=== PATIENT | male | born 1965 | race Caucasian/White ===

== ENCOUNTER 2019-04-10 11:44 | Day surgery (SDC) | payer OTHER ==
[2019-04-10] MEDS: LACTATED RINGER'S 1,000 ML IV (13:24)
[2019-04-10 13:29] LABS: ADD MAN DIFF? NO
[2019-04-10 13:33] LABS: BASOPHILS % 0.5 % (0.0-2.0); EOSINOPHILS # 0.1 10^3/ul (0.0-0.5); EOSINOPHILS % 0.7 % (0.0-7.0); HEMATOCRIT 44.8 % (42.0-52.0); HEMOGLOBIN 14.8 g/dl (14.0-18.0); LYMPHOCYTES % 25.2 % (15.0-51.0); MEAN CORPUSCULAR HEMOGLOBIN 29.7 pg (29.0-33.0); MEAN CORPUSCULAR VOLUME 89.8 fl (82.0-101.0); MEAN PLATELET VOLUME 9.9 fl (7.4-10.4); MONOCYTE # 0.8 10^3/ul (0.3-0.9); NEUTROPHIL # 5.1 10^3/ul (1.6-7.5); NEUTROPHILS % 63.4 % (39.0-77.0); PLATELET COUNT 196 10^3/UL (140-415); RED BLOOD COUNT 4.99 10^6/ul (4.70-6.10); RED CELL DISTRIBUTION WIDTH 13.1 % (11.5-14.5)
[2019-04-10 13:53] LABS: INR 0.99; PROTIME 13.2 Sec (11.9-14.9)
[2019-04-10 13:59] LABS: PARTIAL THROMBOPLASTIN TIME 31.7 Sec (23.0-35.0)
[2019-04-10 14:16] LABS: ANION GAP 8 (5-13); BLOOD UREA NITROGEN 11 mg/dl (7-20); CALCIUM 9.5 mg/dl (8.4-10.2); CARBON DIOXIDE 28 mmol/L (21-31); CHLORIDE 103 mmol/L (97-110); CREATININE 0.85 mg/dl (0.61-1.24); Estimated GFR > 60 mL/min (>60); GLUCOSE 88 mg/dl (70-220); POTASSIUM 3.6 mmol/L (3.5-5.1); SODIUM 139 mmol/L (135-144)
[2019-04-10] MEDS ORDERED: INDOMETHACIN 50 MG SUPP PR (14:30)
[2019-04-10] MEDS ORDERED: FENTAnyl 50 MCG/ML VIAL (14:59)
[2019-04-10] MEDS ORDERED: FENTAnyl 50 MCG/ML VIAL IV (15:00)
[2019-04-10] MEDS ORDERED: CIPROFLOXACIN 400MG/D5W 200 ML (15:16)
[2019-04-10] MEDS ORDERED: LABETALOL HCL 20MG INJ (15:28)
[2019-04-10] MEDS ORDERED: IOHEXOL 300MG/ML 30 ML BTL (15:47)
[2019-04-10] MEDS ORDERED: LIDOCAINE 100 MG SYRINGE (16:52)
[2019-04-10] MEDS ORDERED: SUCCINYLCHOLINE CHLORIDE 100 MG/5 ML SYG IV (16:52)
[2019-04-10] MEDS ORDERED: SUGAMMADEX SODIUM 200 MG/2 ML VIAL IV (16:52)
[2019-04-10] MEDS ORDERED: ROCURONIUM 50 MG INJ (16:52)
[2019-04-10] MEDS ORDERED: PROPOFOL 20 ML (16:52)
[2019-04-10] MEDS: FENTAnyl 50 MCG/ML VIAL IV (17:28)
[2019-04-10] MEDS ORDERED: ONDANSETRON 4 MG INJ (17:45)
[2019-04-10] MEDS: ONDANSETRON 4 MG INJ IV (18:17)
[2019-04-10] MEDS: METOCLOPRAMIDE 10 MG INJ IV (18:34)
== END 2019-04-10 19:00 | disposition home or self-care (01) ==
LOC: SDS 11:44
DX: K80.50 Calculus of bile duct without cholangitis or cholecystitis without obstruction (principal); I10 Essential (primary) hypertension; E66.9 Obesity, unspecified; Z68.33 Body mass index [BMI] 33.0-33.9, adult
CPT/HCPCS: 43264; 74330; 80048; 85025; 85610; 85730; 93005